=== PATIENT | male | born 1960 ===

== ENCOUNTER → 2016-09-07 | Outpatient (CLI) | payer OTHER ==
--- NOTE | 2016-09-12 13:02 | CODING QUERY NO DIAGNOSIS ---
: 1960 TREATMENT RENDERED WITHOUT A DIAGNOSIS To promote full compliance with coding requirements relating to patient care, physician participation is requested in all cases of surgical supply assistant uncertainty. Please assist us with providing a diagnosis/symptom for the test(s) below: A diagnosis/symptom was not documented on your Order. A valid diagnosis/symptom is required to bill all insurances. Please remember that we are unable to code a diagnosis of rule out, probable, possible, questionable, or suspected. Tests that require a diagnosis: DOS: 09/07/16 * AERO/ANAE CULTURE & GRAM STAIN DIAGNOSIS: Provider Signature: Date: Thank you Julissa Patel Health Information Management Once completed, please kindly fax back to [phone] For questions please call [phone]
== END | disposition home or self-care (01) ==
LOC: C.LABSPEC 17:01
PROVIDERS: ATTEND Orthopaedic Surgery
DX: M65.842 Other synovitis and tenosynovitis, left hand (principal)

== ENCOUNTER 2020-10-14 07:44 | Observation (INO) ==
--- NOTE | 2020-10-07 11:33 | Anesthesiology Consultation ---
Date of Service October 07, 2020 Assessment & Plan (1) Encounter for pre-operative examination: COVID screening: Per assessment on 10/07: Travel screen negative, no known COVID- 19 positive contacts or current COVID-19 related symptoms. Surgeon arranging preop COVID testing. Awaiting results. Chart Review Chart Review: Acceptable Risk for Surgery and Patient seen in Pre Admission Testing Teaching & Discussion Pre-Anesthesia Teaching/Discussion Notes: Instructed NPO after midnight before surgery,except medications with 15 cc of water. Medication instructions provided according to the PAT guidelines. History Surgery Operation Date: 10/14/20 12:05 Proposed Procedures p C5-C7 Anterior Cervical Discectomy and Fusion, Spinal Cord Monitoring - Harpal Hatch DO Height/Weight Height: 5 ft 11 in Weight: 98.2 kg Allergies Allergy/AdvReac Type Severity Reaction Status Date / Time No Known Allergies Allergy Verified 08/16/20 10:12 Medications Home Medications Medication Instructions Recorded Confirmed Last Taken lisinopril 10 mg tablet 10 mg PO DAILY 10/07/20 10/07/20 Unknown Past Medical History Medical History Degenerative disc disease Hypertension Migraine R/L neck pain Exercise / Class Metabolic Activity II 4-5 Yardwork/Stairs/Walk up hill Past Surgical History Surgical History History of open reduction and internal fixation (ORIF) procedure Left wrist History of tonsillectomy and adenoidectomy Hx laparoscopic cholecystectomy Hx of hemorrhoidectomy Hx of inguinal hernia repair R/L Past Anesthesia History No Hx of Anesthesia Complications and No Family Hx of Anesthesia Complications History of PONV No Hx of PONV and Hx of Motion Sickness (Mild ) Social History Smoking Status: Never smoker Hx Alcohol Use: Yes alcohol intake frequency: holidays/special occasions only Hx Substance Use: No substance use type: does not use Review of Systems Occasional chronic, dry cough unchanged (r/t lisinopril) Patient denies chest pain, shortness of breath, dyspnea on exertion, fever, chills, wheezing, palpitations. Physical Exam Vital Signs VITALS BP 113/74 P 71 TEMP WNL SP02 96%RA RESP 16 PHYSICAL Mildly decreased cervical extension range of motion. Full TMJ range of motion. TMD 3 finger breaths Mallampati Score 3 Dentition: missing molars Lungs: clear throughout to auscultation Cardiac: regular rate and rhythm, no murmurs noted Spine: normal Carotid arteries: negative bruit Extremities: no edema Trimmed schneider Lab Results Anesthesia Preop Results Results Anesthesia Widget: WBC 6.20 K/uL (4.8-10.8) 10/07/20 Hgb 15.0 g/dL (14.0-18.0) 10/07/20 Hct 44.4 % (42-52) 10/07/20 Plt 266 K/uL (130-400) 10/07/20 Na 139 mmol/L (136-145) 10/07/20 K 4.4 mmol/L (3.5-5.1) 10/07/20 Cl 109 mmol/L (98-107) H 10/07/20 CO2 27 mmol/L (21-32) 10/07/20 BUN 16 mg/dl (7-18) 10/07/20 Creat 1.31 mg/dl (0.6-1.4) 10/07/20 Glucose Level 72 mg/dl (70-99) 10/07/20 PT 9.8 Seconds (9.0-12.0) 10/07/20 PTT 25.2 Seconds (21.0-31.0) 10/07/20 INR 1.0 (0.9-1.1) 10/07/20 Urine Color Yellow 10/07/20 Urine Appearance Clear (Clear) 10/07/20 Urine pH 6.0 (4.5-7.5) 10/07/20 Urine Specific [place] 1.017 (1.000-1.030) 10/07/20 Urine Protein Negative (Negative) 10/07/20 Urine Glucose (UA) 1+ (Negative) H 10/07/20 Urine Ketones Negative (Negative) 10/07/20 Urine Blood Negative (Negative) 10/07/20 Urine Nitrite Negative (Negative) 10/07/20 Urine Bilirubin Negative (Negative) 10/07/20 Urine Urobilinogen Negative (Negative) 10/07/20 Urine Leukocyte Esterase Negative (Negative) 10/07/20 Blood Type A Positive 10/07/20 Antibody Screen NEGATIVE 10/07/20 Testing Electrocardiogram Date: 10/07/20 NSR at 70bpm. unconfirmed report. Chest X-Ray Date: 10/07/20 FINDINGS: Lung volumes are normal. Lungs are clear. There is no pneumothorax or pleural effusion. There is mild cardiomegaly. Mediastinal contours are normal. There is no evidence for pulmonary edema. IMPRESSION: No acute cardiopulmonary findings. Mild cardiomegaly.
--- NOTE | 2020-10-13 15:18 | History & Physical Report ---
Date of Service October 13, 2020 Assessment & Plan (1) Herniation of cervical intervertebral disc with radiculopathy: Plan: Plan at this time patient exhibits severe cervical radiculopathy failed extensive course of nonoperative care and and presents with progressive n eurologic deficit. Subsequently I am recommending urgent anterior cervical discectomy and fusion C5-C7 to avoid permanent strength deficit and and chronic neurogenic pain. History of Present Illness Chief Complaint: Neck and bilateral arm pain with weakness Primary Care Provider: Mary Powers MD This is a 60-year-old male presents with progressive cervicalgia rating into the bilateral scapular regions down his arms below his elbows into his hands left is markedly worse than the right. Is undergone extensive course of physical therapy which exacerbated symptoms. Denies specific trauma, fall or event. He has tried various pain medications without success. He is very concerned regarding his progressive weakness and severe pain which can reach a 10 out of 10. Allergies Allergy/AdvReac Type Severity Reaction Status Date / Time No Known Allergies Allergy Verified 08/16/20 10:12 Home Medications Medication Instructions Recorded Confirmed Type lisinopril 10 mg tablet 10 mg PO DAILY 10/07/20 10/07/20 History Past Med/Surg History Medical History Degenerative disc disease Hypertension Migraine R/L neck pain Surgical History History of open reduction and internal fixation (ORIF) procedure Left wrist History of tonsillectomy and adenoidectomy Hx laparoscopic cholecystectomy Hx of hemorrhoidectomy Hx of inguinal hernia repair R/L Social History Smoking Status: Never smoker Second Hand Exposure: No; Hx Alcohol Use: Yes Hx Substance Use: No Preferred Language: Czech Communication Ability: Effective Intervention Specialist Required: No Beliefs That Will Affect Care: None Current Living Situation: Spouse Feels Safe at Home: Yes Assistive Devices: Glasses Physical Exam Physical Exam: Patient is alert and oriented and in obvious distress Heart is regular in rhythm Lungs clear to auscultation Testing strength upper extremities demonstrates evidence of 3+ /5 left biceps triceps and grasp compared to 4+/5 right biceps triceps and grasp. He has sensory deficits to cold and light touch to the left forearm compared to the right. Is markedly positive Spurling's to the left. Negative to the right. He exhibits a meets phenomenon with cervical extension with shocking pain down the left arm.
[~2020-10-14 07:44] MED LIST: ACETAMINOPHEN 500 MG TAB PO SCH; CeleBREX 200 MG CAP PO SCH; GABAPENTIN 600 MG DOSE PO SCH; LR 15ML/HR IV SCH; PROPOFOL IV EMULSION 10 MG/ML 100 ML VIAL IV ONE; ceFAZolin 2000MG 2,000 MG/15 ML SYR IV SCH
[2020-10-14] MEDS ORDERED: LIDOCAINE 2% 2 ML VIAL/AMP(20MG/ML) INFIL ONE (08:42)
[2020-10-14] MEDS ORDERED: ONDANSETRON INJ 2 MG/ML 2 ML VIAL ONE (08:42)
[2020-10-14] MEDS ORDERED: DEXAMETHASONE SOD INJ 4 MG/ML VIAL ONE (08:42)
[2020-10-14] MEDS ORDERED: fentaNYL citrate 100 MCG/2 ML VIAL ONE ×2 (08:42→10:58)
[2020-10-14] MEDS ORDERED: PROPOFOL IV EMULSION 10 MG/ML 20 ML VIAL IV ONE (08:42)
[2020-10-14] MEDS ORDERED: MIDAZOLAM HCL 1 MG/ML 2ML VIAL ONE (08:42)
[2020-10-14] MEDS ORDERED: ROCURONIUM BROMIDE 10 MG/ML 5 ML VIAL IV ONE (08:42)
[2020-10-14] MEDS ORDERED: HYDROmorphone INJ 2 MG/ML SYR/VIAL IV PRN (09:24)
[2020-10-14] MEDS ORDERED: ATROPINE SULFATE 0.1 MG/ML 10ML SYR IV PRN (09:24)
[2020-10-14] MEDS ORDERED: ePHEDrine sulfate 50 MG/ML AMP IV PRN (09:24)
[2020-10-14] MEDS ORDERED: ONDANSETRON INJ 2 MG/ML 2 ML VIAL IV PRN ×2 (09:24→15:28)
--- NOTE | 2020-10-14 09:29 | History & Physical Bridge Note ---
Date of Service October 14, 2020 History & Physical Bridge Note I have examined the patient, reviewed the History & Physical and in the interval since the performance of the History & Physical I have noted the following changes of clinical significance: no changes noted C5-C7 anterior cervical discectomy and fusion
[2020-10-14] MEDS ORDERED: FLOSEAL HEMOSTATIC MATRIX 10ML TOP ONE (10:54)
--- NOTE | 2020-10-14 11:46 | Operative Report ---
Post Operative Report Pre & Post Diagnosis Operation Date: 10/14/20 09:45 Pre-Op Diagnosis: Cervical stenosis with radiculopathy Post-Op Diagnosis: Same I identified the patient and participated in the time-out.: Yes Procedure Operation Date: 10/14/20 09:45 Actual Procedures #1 anterior cervical discectomy with bilateral foraminotomies C5-6 and C6-C7. #2 anterior cervical arthrodesis C5-6 and C6-7. #3 placement of an 8 mm spiral cage filled with I factor at C5-6 and 9 mm spiral cage filled with I factor at C6-C7. #4 application of bay plate and screws from C5-C7. Surgeon Harpal Hatch, DO Ticket Scheduler Merrick Olson Estimated Blood Loss 10 Findings Consistent with Post-Op Diagnosis Specimens None Indications And painThis is a 52-year-old male who presents with marked clotting status with arm and is here for surgical invention Description of Procedure Patient was met with identified informed consent obtained. Patient was then taken to the operative suite underwent a patient placed in spine position Jordan table at [place] warhead maintenance specialist. All bony prominences well-padded eyes inspected to ensure no external pressure placed upon. At this time the anterior cervical spine was prepped and draped in a sterile fashion. The assistance of fluoroscopy identified the C6 vertebral body and a transverse incision was placed along the right anterior aspect of the cervical spinal lines region. Blunt dissection with assistance of bipolar electrocautery performed down to and exposing the anterior cervical spine from C5-C7. Several 10 retractors placed. Then performed a complete discectomy of C5-C6 out to the uncovertebral joints bilaterally. This included removal of all posterior annular fibers longitudinal ligament bilateral foraminotomies performed. Endplates were burred to subcortically bone and an 8 mm spiral cage filled with I factor tapped in pos ition. [place] distracting pins were utilized for exposure. Then proceeded to C6-C7. Again complete discectomy performed out to the uncovertebral bones bilaterally. [place] distracting pins again utilized. Removed all posterior annular fibers longitudinal ligament bilateral foraminotomies performed endplates burred to subcortically bone and 9 mm spiral cage filled with I factor tapped in position. Distracting apparatus was removed all anterior osteophytes burred to a smooth cortical surface and a 5 complete and screws applied with the assistance of fluoroscopy. The incision was then copiously irrigated explored to ensure no damage to surrounding structures remaining bleeding. 10 round SAADIA drain inserted. Incision was then closed with 2 Vicryl in a fashion of 4 Monocryl for final skin closure. Steri-Strip sterile dressings placed. Patient will continue PACU stable addition. Please note spinal cord monitoring visualized at the procedure no changes noted. Lastly Merrick Olson was present at the entire procedure involved the patient positioning complex portions of the surgery and final skin closure. I attest to the content of the Intraoperative Record and any orders documented therein. Any exceptions are noted below.
[2020-10-14] MEDS: fentaNYL citrate 100 MCG/2 ML VIAL IV PRN ×2 (12:40→12:45)
--- NOTE | 2020-10-14 12:59 | Fluoroscopy Report ---
FL cervical 2-3V HISTORY: 60 years-old Male ACDF C5-C7 COMPARISON: None TECHNIQUE: 3 spot fluoroscopic views of the cervical spine were obtained utilizing 10.0 seconds fluor oscopy time FINDINGS: Limited exam secondary to overlying soft tissue. Anterior plate and screw fusion hardware is noted at what appears to be the C5-C7 levels. The visualized hardware appears intact. Images were interpreted following the surgery. Endotracheal tube is noted. Surgical sponge projects over the anterior soft t issues. IMPRESSION: Fluoroscopic assistance as above. ACT 112: Negative or not required by law. The above report was generated using voice recognition software. It may contain grammatical, syntax o r spelling errors. Electronically signed by: Charlie Apodaca M.D. 10/14/2020 12:58 PM
--- NOTE | 2020-10-14 13:21 | Anesthesiology Progress Note ---
Date of Service October 14, 2020 Anesthesia Post Procedure Vital Signs Vital Signs: Temp Pulse Pulse Resp BP BP Pulse Ox 10/14/20 13:20 61 15 128/82 97 10/14/20 13:10 47 L 12 129/84 97 10/14/20 13:00 49 L 14 125/90 97 10/14/20 12:50 87 14 126/88 95 10/14/20 12:40 57 L 12 133/88 100 10/14/20 12:30 62 12 143/90 H 100 10/14/20 12:20 59 L 12 145/91 H 100 10/14/20 12:10 36.3 C L 73 12 139/91 98 10/14/20 08:09 36.5 C 73 20 138/89 95 Pain Intensity Anterior Neck: Pain Intensity: 5 Transfer of Care Handoff Completed per policy Notes Mental Status: alert / awake / arousable Patient Amnestic to Procedure: Yes Nausea / Vomiting: adequately controlled Pain: adequately controlled Airway Patency, RR, SpO2: stable & adequate BP & HR: stable & adequate Hydration State: stable & adequate Anesthetic Complications: no major complications apparent
[2020-10-14] MEDS ORDERED: DO NOT ADMINISTER FLU VACCINE PRN (15:28)
[2020-10-14] MEDS ORDERED: bisacodyL 10 MG SUPP PR PRN (15:28)
[2020-10-14] MEDS ORDERED: dexAMETHasone 8 MG in SYRINGE 0 ML IV PRN (15:28)
[2020-10-14] MEDS ORDERED: ACETAMINOPHEN 1,000 MG/100 ML VIAL IV PRN (15:28)
[2020-10-14] MEDS ORDERED: HYDROmorphone INJ 1 MG/ML SYRINGE IV PRN (15:28)
[2020-10-14] MEDS ORDERED: LORazepam 0.5 MG TAB PO PRN (15:28)
[2020-10-14] MEDS ORDERED: ALUMINUM/MAGNESIUM SUSP 30 ML UDC PO PRN (15:28)
[2020-10-14] MEDS ORDERED: FAMOTIDINE 20 MG TAB PO PRN (15:28)
[2020-10-14] MEDS ORDERED: DO NOT ADMINISTER PNEUMOCOCCAL VACCINE PRN (15:28)
[2020-10-14] MEDS ORDERED: diphenhydrAMINE Capsule 25 MG CAP PO PRN (15:28)
[2020-10-14] MEDS ORDERED: MAGNESIUM HYDROXIDE SUSP 30 ML UDC PO PRN (15:28)
[2020-10-14] MEDS ORDERED: hydrOXYzine HCl 25 MG TAB PO PRN (15:28)
[2020-10-14] MEDS ORDERED: HYDROmorphone INJ 0.5 MG/0.5 ML SYR IV PRN (15:28)
[2020-10-14] MEDS ORDERED: LORazepam 0.5 MG/1 ML VIAL IV PRN (15:28)
[2020-10-14] MEDS ORDERED: ONDANSETRON 4 MG OD TAB PO PRN (15:28)
[2020-10-14] MEDS ORDERED: PROMETHAZINE HCL 12.5 MG in SODIUM CHLORIDE 0.9% 50 ML IV PRN (15:28)
[2020-10-14] MEDS ORDERED: oxyCODONE HCL IR 5 MG TAB (IMMEDIATE RELEASE) PO PRN (15:28)
[2020-10-14] MEDS ORDERED: SOD PHOSPHATE/SOD BIPHOSPHATE ENEMA 132 ML BTL PR PRN (15:28)
[2020-10-14] MEDS ORDERED: RACEPINEPHRINE 2.25% NEBU SOLN 0.5 ML VIAL INH PRN (15:28)
[2020-10-14] MEDS ORDERED: ACETAMINOPHEN 500 MG TAB PO PRN (15:28)
[2020-10-14] MEDS ORDERED: METOCLOPRAMIDE HCL INJ 5 MG/ML 2 ML VIAL IV PRN (15:28)
[2020-10-14] MEDS ORDERED: NALOXONE HCL 0.4 MG/1 ML VIAL/CARP IV PRN (15:28)
[2020-10-14] MEDS: traMADol HCL 50 MG TABLET PO PRN ×2 (16:21→20:30)
[2020-10-14] MEDS: LACTATED RINGER'S 1,000 ML IV SCH ×2 (16:23→23:05)
[2020-10-14] MEDS: ceFAZolin 2000MG 2,000 MG/15 ML SYR IV SCH (17:11)
[2020-10-14] MEDS ORDERED: DOCUSATE SODIUM/SENNA 50/8.6MG TAB PO SCH (21:00)
[2020-10-15] MEDS: traMADol HCL 50 MG TABLET PO PRN ×3 (00:59→10:01)
[2020-10-15] MEDS: ceFAZolin 2000MG 2,000 MG/15 ML SYR IV SCH (01:06)
[2020-10-15] MEDS: LACTATED RINGER'S 1,000 ML IV SCH (05:44)
[2020-10-15] MEDS ORDERED: POLYETHYLENE (MIRALAX) 17 GM PACK PO SCH (06:00)
--- NOTE | 2020-10-15 08:27 | Discharge Summary ---
Date of Service October 15, 2020 Admission HPI Per Admitting Provider This is a 60-year-old male presents with progressive cervicalgia rating into the bilateral scapular regions down his arms below his elbows into his hands left is markedly worse than the right. Is undergone extensive course of physical therapy which exacerbated symptoms. Denies specific trauma, fall or event. He has tried various pain medications without success. He is very concerned regarding his progressive weakness and severe pain which can reach a 10 out of 10. Principal Diagnosis Cervical spinal stenosis with radiculopathy Discharge Data Allergies Allergy/AdvReac Type Severity Reaction Status Date / Time No Known Allergies Allergy Verified 10/14/20 08:03 Procedures Performed Operation Date: 10/14/20 09:45 Actual Procedures p C5-C7 Anterior Cervical Discectomy and Fusion, Spinal Cord Monitoring(Not Applicable) - Harpal Hatch DO Ordered Studies 10/14/20 09:45 [place] cervical 2-3V Routine Hospital Course (1) Herniation of cervical intervertebral disc with radiculopathy: Patient went anterior cervical discectomy fusion tolerates well second orthopedic for postoperative. Postop day 1 he swallowing well no hoarseness arm symptoms improved. Excellent strength testing. SAADIA drain decreasing probably. Subsequent discharge home. Discharge orders instructions from the chart for further review. Total Time Total Time Spent Total Time Spent (In Minutes): 20 minutes Discharge Plan Discharge Items Patient Disposition: Home - Self-Care Reason For Visit: Spinal Stenosis, Cervical Region Discharge Diagnosis: Cervical spinal stenosis with radiculopathy Activity: As commented below Non-emergency contact: Primary Care Provider Call non-emergency contact if: you have any medication questions Follow-up/Referrals: Mary Powers MD [Primary Care Provider] - Diet: Regular Addtl Attending Provider Instructions: ACTIVITY RECOMMENDATIONS: SELF CARE INSTRUCTIONS AFTER CERVICAL FUSIONS 1. No smoking. Smoking drastically decreases the chance of a solid fusion. 2. No bending, lifting more than 5 pounds, or twisting (roll like a log when turning in bed). 3. You may shower 3 days after surgery. Thoroughly dry wound. Do not soak in the tub. 4. Cervical collar: Must be worn at all times including sleeping. You may remove the brace only to bath, eat and if you are sitting in a recliner. 5. Please walk as much as you can for exercise. Gradually increase the distance that you walk as your endurance increases. SPECIAL CARE INSTRUCTIONS: VERY IMPORTANT TO READ AND REVIEW A. Do not take any anti-inflammatory medications (i.e. Indocin, Advil, Aspirin, Naprosyn, Aleve, Motrin, etc.) as these may inhibit the chance of a solid fusion. Tylenol is okay to take. B. Your surgical incision has been closed with a cosmetic suture under the skin that will dissolve in about 6 weeks. In 14 days, you can use a pair of clean scissors and cut the suture that is left outside of the skin at the ends of your incision. C. Complications are uncommon, but please contact us if you have any signs or symptoms of: 1. wound infection (fever higher than 102.5 degrees F, redness, separation of wound, drainage, or increasing pain from the incision) 2. blood clots in legs (pain, swelling, redness and warmth in legs) 3. urinary tract infection (fever higher than 102.5 degrees, burning upon urination or increased frequency of urination) 4. nerve problems (inability to walk on your toes or heels, numbness, loss of bowel or bladder control) 5. any other symptoms that concern you. D. Please call the office at if you have any concerns or questions about your operation or recovery. MANAGING PAIN AFTER SPINAL SURGERY 1. Narcotic medication is intended for short-term use and will be provided for surgical pain. Surgical pain usually lasts for a period of 4-6 weeks. Narcotic medication includes Percocet, Vicodin, Darvocet, Tylenol #3 or Lortab. 2. Longer-term pain is more appropriately treated with non-narcotic medication such as Tylenol ES. 3. Muscle spasm is not appropriately treated with narcotics. Muscle relaxers such as Soma, Flexeril or Skelaxin can be used along with Tylenol ES. 4. Remember that we all live with some "aches and pains". This is not unusual or uncommon after an injury or as we get older. 5. We will provide appropriate medication within the normal guidelines of their prescribed use. We will also be very cautious and aware of potential abuse and extended duration of patients' medication needs. 6. Please allow 2-3 days to process refills. Prescriptions will not be mailed but must be picked up at the office. FOLLOW UP VISIT: Keep your scheduled follow-up appointment. Any questions, please call the office at . Pending Studies at Discharge: No Stand-Alone Forms: My [facility], Smoking Cessation Medications and DC Order Prescriptions: New tramadol 50 mg tablet 50 mg PO Q6H PRN (Reason: pain, moderate) Qty: 20 RF: 0 Continued lisinopril 10 mg Tablet 10 mg PO DAILY RF: 0 Discharge Orders: Discharge Order (Routine); Ordered 10/15/20 Ordered By: Harpal Hatch Admission Data Admit Date/Time: 10/14/20 11:49 Attending Provider: Harpal Hatch Admit Provider: Harpal Hatch Primary Care Provider: Mary Powers V.
[2020-10-15] MEDS ORDERED: lisinopril 10 MG TAB PO SCH (09:00)
== END 2020-10-15 10:16 | disposition home or self-care (01) ==
LOC: ASU 07:44 → INTOOBSV 11:49 → PACUINP 11:49 → 3E 15:20
DX: I10 Essential (primary) hypertension; M48.02 Spinal stenosis, cervical region; M50.122 Cervical disc disorder at C5-C6 level with radiculopathy; M50.123 Cervical disc disorder at C6-C7 level with radiculopathy; Z79.899 Other long term (current) drug therapy